=== PATIENT | female | born 1980 | race Caucasian/White ===

== ENCOUNTER 2016-03-17 07:54 | Emergency (ER) | payer BC ==
--- NOTE | 2016-03-17 08:18 | Emergency Department Record ---
History of Present Illness - General Chief complaint: Pain Stated complaint: EAR PAIN AND LEG PAIN Time Seen by Provider: 03/17/16 08:16 Source: Patient Mode of Arrival: Ambulatory Limitations: No limitations - History of Present Illness Initial comments: 35 yo female presents to ED for evaluation of several complaints. Patient reports right ear pain for 1-2 days, denies drainage or decreased hearing symptoms. Patient also reports pain radiating down her right posterior leg described as "burning" as well. Patient denies weakness, urinary retention, or frequency symptoms. Patient also believes that she may have a "rib out" on her right side. Patient denies injury or trauma. Patient denies health problems at her baseline, but does report a history of Hodgekin's lymphoma in remission as well as thyroid dysfunction resulting from her radiation treatments, takes synthroid daily. MD Complaint: Extremity pain Onset/Timin -: Days(s) Location: Right, Lower Leg, Thigh Severity scale (1-10): 7 Quality: Burning Consistency: Constant Improves with: Nothing Worsens with: Nothing Associated Symptoms: Denies other symptoms - Related Data Home Medications Medication Instructions Recorded Confirmed Last Taken Nitrofurantoin Macrocrystal 100 mg PO DAILY PRN 01/01/14 03/17/16 10/01/15 [Nitrofurantoin] Solifenacin Succinate [Vesicare] 5 mg PO DAILY 01/01/14 03/17/16 10/01/15 Levothyroxine Sodium [Synthroid] 100 mcg PO DAILY 09/11/14 03/17/16 10/02/15 Rizatriptan Benzoate [Maxalt] 5 mg PO ASDIR PRN tab 12/28/14 03/17/16 10/01/15 Previous Rx's Medication Instructions Recorded Naproxen [Naprosyn] 500 mg PO Q12H PRN #20 tab. 03/17/16 Allergies Allergy/AdvReac Type Severity Reaction Status Date / Time No Known Drug Allergies Allergy Verified 03/17/16 08:07 Travel Screening - Travel/Exposure Within Last 30 Days Have you traveled within the last 30 days?: No - Travel Symptoms Symptom Screening: None Review of Systems Constitutional: Denies: Chills, Fever, Malaise, Night sweats Eyes: Denies: Eye discharge, Eye pain ENT: Reports: Ear pain. Denies: Congestion, Epistaxis Respiratory: Denies: Cough, Dyspnea Cardiovascular: Denies: Chest pain, Dyspnea on exertion Endocrine: Denies: Fatigue, Heat or cold intolerance Gastrointestinal: Denies: Abdominal pain, Nausea, Vomiting Genitourinary: Denies: Dysuria, Frequency, Hematuria Musculoskeletal: Reports: Myalgia. Denies: Arthralgia, Back pain, Gout, Joint swelling Skin: Denies: Bruising, Change in color Neurological: Denies: Abnormal gait, Confusion, Headache, Numbness, Seizure, Weakness Psychiatric: Denies: Anxiety Hematological/Lymphatic: Denies: Anemia, Blood Clots Past Medical History - SOCIAL HISTORY Smoking Status: Never smoker Alcohol Use: None Drug Use: None - RESPIRATORY Hx Respiratory Disorders: Yes Comment:: Spontaneous pneumothorax - CARDIOVASCULAR Hx Cardio Disorders: Yes Comment:: Murmur - NEURO Hx Neuro Disorders: Yes Hx Headaches: Yes - GI Hx GI Disorders: Yes Hx Irritable Bowel: Yes - Hx Genitourinary Disorders: Yes Comment:: Interstitial Cystitis - ENDOCRINE Hx Endocrine Disorders: Yes Hx Thyroid Disease: Yes (Complete thyroidectomy) - MUSCULOSKELETAL Hx Musculoskeletal Disorders: Yes Comment:: osteopenia - PSYCH Hx Psych Problems: Yes Hx Anxiety: Yes - HEMATOLOGY/ONCOLOGY Hx Hematology/Oncology Disorders: Yes Hx Cancer: Yes (hx Hodgkins Lymphoma stage 4 age 16) Hx Chemotherapy: Yes Hx Radiation Therapy: Yes Family Medical History Any Significant Family History?: Yes Hx Cancer: Father, Grandparents Hx Heart Disease: Grandparents Physical Exam - General General Appearance: Alert, Oriented x3, Cooperative, No acute distress, Other ( patient is on [employer] mobile phone looking at [employer] during her examination) - Head Head exam: Atraumatic, Normocephalic, Normal inspection Head exam detail: negative: Abrasion, Contusion, Toledo's sign, General tenderness, Hematoma, Laceration - Eye Eye exam: Normal appearance. negative: Conjunctival injection, Periorbital swelling, Periorbital tenderness, Scleral icterus - ENT ENT exam: TM's normal bilaterally Ear exam: Other (Cerumen in the ears bilaterally). negative: Auricular hematoma , Auricular trauma, External canal tenderness Nasal Exam: negative: Active bleeding, Discharge, Dried blood, Foreign body Mouth exam: negative: Drooling, Laceration, Muffled voice, Tongue elevation - Neck Neck exam: Normal inspection. negative: Meningismus, Tenderness - Respiratory Respiratory exam: Normal lung sounds bilaterally. negative: Respiratory distress, Rhonchi, Stridor, Wheezes - Cardiovascular Cardiovascular Exam: Regular rate, Normal rhythm, Normal heart sounds - GI/Abdominal GI/Abdominal exam: Soft. negative: Rebound, Rigid, Tenderness - Rectal Rectal exam: Deferred - exam: Deferred - Extremities Extremities exam: Normal inspection, Full ROM, Other (Dorsiflexion and plantar flexion are symmetric, 5/5 bialterally, no lower extremity edema is present, no calf pain on examination.). negative: Calf tenderness, Pedal edema, Tenderness - Back Back exam: Denies: CVA tenderness (R), CVA tenderness (L) - Neurological Neurological exam: Alert, Normal gait, Oriented X3 - Psychiatric Psychiatric exam: Normal affect, Normal mood - Skin Skin exam: Normal color. negative: Abrasion Type of lesion: negative: abrasion Course Vital Signs 03/17/16 07:57 Temperature 97.8 F Pulse Rate 95 H Respiratory 18 Rate Blood Pressure 106/67 Pulse Ox 99 - Reevaluation(s) Reevaluation #1: 03/17/16 08:24 On examination, patient has no risk factors or history of DVT previously, and has no clinical signs/symptoms that are consistent with DVT. Patient reports "burning" down the back of her right thigh, denies LE weakness, numbness, or tingling. Symptoms are c/w sciatica, and the patient denies any form of trauma/ injury. Radiographs are unlikely to be of benefit. Patient's TMs appear clear with moderate cerumen bilaterally, no evidence for infection on examination. Patient c/o right sided "rib pain", has normal BS, mild TTP with palpation of the right posterior ribs on examination. Patient is PERC negative on examination. Will treat with Naprosyn for the patient's pain symptoms with instructions for follow-up in 3-5 days with her PCP. Disposition Disposition: Discharge Clinical Impression: Ear pain, right Sciatica Qualifiers: Laterality: right Qualified Code(s): M54.31 - Sciatica, right side Disposition: Home, Self-Care Condition: (2) Stable Instructions: Sciatica (ED) Additional Instructions: Return to ED if your symptoms worsen or if you have any concerns. Naprosyn as directed. Follow-up with Dr. Ghotra in 3-5 days as directed. Prescriptions: Naproxen [Naprosyn] 500 mg PO Q12H PRN #20 tab. PRN Reason: Pain - Moderate (5-7) Forms: Patient Portal Access Time of Disposition: 08:18
== END 2016-03-17 08:25 | disposition home or self-care (01) ==
LOC: ER 07:54
DX: M54.31 Sciatica, right side (principal); H92.01 Otalgia, right ear; H61.23 Impacted cerumen, bilateral; R07.81 Pleurodynia
CPT/HCPCS: 99282

== ENCOUNTER 2016-05-27 07:39 | Emergency (ER) | payer BC ==
--- NOTE | 2016-05-27 07:57 | Emergency Department Record ---
History of Present Illness - General Chief Complaint: Headache Migraine Stated Complaint: HEADACHE Time Seen by Provider: 05/27/16 07:56 Source: Patient Mode of Arrival: Ambulatory Limitations: No limitations - History of Present Illness Initial Comments: The patient is here due to a 24 hour hx of sharp stabbing L sided CP. The pain is intermittent and lasts seconds to minutes. She denies any EDWARDO, SOB, sweating , nausea, or vomiting with the pain. There is no exertional component with the pain and she denies any ARIAS or a pleuritic or positional aspect to the pain. She denies any recent illnesses, fever, chills, cough or injuries. The patient also has a typical migraine LOPEZ for the last day or so also but that has been a chronic issue. There is no new pain, visual changes or any changes from her typical LOPEZ pattern but she does have very mild bilateral facial numbness. There are no visual changes, arm or leg numbness weakness or balance issues. MD Complaint: Headache Onset/Timin -: Hour(s) Onset Description: Gradual Location: Diffuse, Left Severity: Moderate Severity scale (1-10): 5 Quality: Similar to previous headaches Consistency: Constant Improves With: Nothing Worsens With: None Other Symptoms: Chest pain Treatments Prior to Arrival: None - Related Data Home Medications Medication Instructions Recorded Confirmed Last Taken Nitrofurantoin Macrocrystal 100 mg PO DAILY PRN 01/01/14 05/27/16 05/26/16 [Nitrofurantoin] Solifenacin Succinate [Vesicare] 5 mg PO DAILY 01/01/14 05/27/16 05/26/16 Levothyroxine Sodium [Synthroid] 100 mcg PO DAILY 09/11/14 05/27/16 05/26/16 Rizatriptan Benzoate [Maxalt] 5 mg PO ASDIR PRN tab 12/28/14 05/27/16 10/01/15 Previous Rx's Medication Instructions Recorded Naproxen [Naprosyn] 250 mg PO BID #14 tablet 05/27/16 Allergies Allergy/AdvReac Type Severity Reaction Status Date / Time No Known Drug Allergies Allergy Verified 05/27/16 07:44 Travel Screening - Travel/Exposure Within Last 30 Days Have you traveled within the last 30 days?: No - Travel/Exposure Within Last Year Have you traveled outside the [place] in the last year?: No - Additonal Travel Details Have you been exposed to anyone with a communicable illness?: No - Travel Symptoms Symptom Screening: None Review of Systems Constitutional: Denies: Chills, Fever Eyes: Denies: Eye discharge ENT: Denies: Congestion Respiratory: Denies: Cough, Dyspnea Cardiovascular: Denies: Arrhythmia Past Medical History - SOCIAL HISTORY Smoking Status: Never smoker Alcohol Use: None Drug Use: None - RESPIRATORY Hx Respiratory Disorders: Yes Comment:: Spontaneous pneumothorax - CARDIOVASCULAR Hx Cardio Disorders: Yes Comment:: Murmur - NEURO Hx Neuro Disorders: Yes Hx Headaches: Yes - GI Hx GI Disorders: Yes Hx Irritable Bowel: Yes - Hx Genitourinary Disorders: Yes Comment:: Interstitial Cystitis - ENDOCRINE Hx Endocrine Disorders: Yes Hx Thyroid Disease: Yes (Complete thyroidectomy) - MUSCULOSKELETAL Hx Musculoskeletal Disorders: Yes Comment:: osteopenia - PSYCH Hx Psych Problems: Yes Hx Anxiety: Yes - HEMATOLOGY/ONCOLOGY Hx Hematology/Oncology Disorders: Yes Hx Cancer: Yes (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 negative: Tonsillar erythema, Tonsillar exudate - Neck Neck exam: Normal inspection, Full ROM. negative: Lymphadenopathy, Meningismus (The neck is very supple.), Tenderness - Respiratory Respiratory exam: Normal lung sounds bilaterally, Chest wall tenderness (There is tenderness to the L anterior T5-6 area costochondral joints.). negative: Respiratory distress - Cardiovascular Cardiovascular Exam: Regular rate, Normal rhythm, Normal heart sounds - GI/Abdominal GI/Abdominal exam: Soft, Normal bowel sounds. negative: Tenderness - Extremities Extremities exam: Normal inspection, Full ROM, Normal capillary refill. negative: Tenderness - Neurological Neurological exam: Alert, Normal gait, Oriented X3, Other (neg Drift or Rhomberg.). negative: Abnormal gait, Altered, Motor sensory deficit Course Vital Signs 05/27/16 07:47 Temperature 97.8 F Pulse Rate 92 H Respiratory 18 Rate Blood Pressure 110/86 Pulse Ox 98 - Reevaluation(s) Reevaluation #1: The patient is doing well at this time. She denies any CP, SOB, or EDWARDO at this time. Her LOPEZ and facial numbness has resolved also. I explained to her that her lab tests, xray and EKG are all WNL's. She is to F/U with her PCP next week for further evaluation. I also explained to her that due to her age and description of the pain in her chest I strongly doubt any cardiac or pulmonary etiology. She is low risk by Wells, Criteria and PERC Neg so I also strongly doubt any clotting issues. 05/27/16 09:59 05/27/16 10:02 Medical Decision Making - Data Complexity MDM Data: Labs Ordered and/or Reviewed, X-Ray Ordered and/or Reviewed, EKG Ordered and/or Reviewed - Lab Data Result diagrams: 05/27/16 08:30 05/27/16 08:30 - EKG Data -: EKG Interpreted by Me EKG: No Acute Changes, Normal EKG - Radiology Data Radiology results: Report reviewed (CXR: Neg.) Disposition Disposition: Discharge Clinical Impression: Anterior chest wall pain Disposition: Home, Self-Care Condition: (1) Good Instructions: Migraine Headache (ED), Chest Wall Pain (ED) Additional Instructions: Please rest today and use Naprosyn for pain. Please see your PCP next week for recheck and to discuss possibly ordering a cardiac echo. Please return to the ER for any increased pain, trouble breathing or sweating. Prescriptions: Naproxen [Naprosyn] 250 mg PO BID #14 tablet Forms: Patient Portal Access Time of Disposition: 09:58
[2016-05-27] MEDS: KETOROLAC 30 MG/ML VIAL IVP ONE (08:22)
[2016-05-27 08:35] LABS: BASO % 1.2 % (0-6); EOS % 7.5 % (0-6); GRAN % 39.9 % (47-80); HEMATOCRIT 37.9 % (35.0-47.0); HEMOGLOBIN 12.4 gm/dl (11.6-16.0); LYMPH % 43.3 % (16-45); MEAN CELL VOLUME 91.8 fl (81-97); MEAN CORPUSCULAR HGB CONC 32.7 g/dl (32-36); MEAN PLATELET VOLUME 8.7 fl (7.4-10.4); MONO % 8.1 % (0-9); PLATELET COUNT 200 K/uL (130-400); RED BLOOD COUNT 4.13 M/uL (3.80-5.40); RED CELL DISTRIBUTION WIDTH 12.7 % (11.5-14.5); WHITE BLOOD COUNT W/O DIFF 3.2 K/uL (4.2-12.2)
[2016-05-27 08:51] LABS: ANION GAP 6.4 (7-16); BLOOD UREA NITROGEN 9 mg/dL (7-17); CARBON DIOXIDE 28.6 mmol/L (22-30); CREATINE PHOSPHOKINASE 44 U/L (30-135); CREATININE 0.8 mg/dL (0.52-1.04); EST GLOMERULAR FILTRATION RATE > 60 ml/min; GLUCOSE,RANDOM 93 mg/dL (70-110)
[2016-05-27 09:03] LABS: CKMB < 0.2 ug/L (0-6); TROPONIN I < 0.012 ng/mL (0.00-0.034)
[2016-05-27] MEDS: METOCLOPRAMIDE HCL 10 MG/2 ML VIAL IVP ONE (09:10)
[2016-05-27] MEDS: DIPHENHYDRAMINE HCL IV 50 MG/ML VIAL IVP ONE (09:10)
== END 2016-05-27 10:19 | disposition home or self-care (01) ==
LOC: ER 07:39
DX: R07.89 Other chest pain (principal); R20.0 Anesthesia of skin; R51 Headache; Z85.71 Personal history of Hodgkin lymphoma
CPT/HCPCS: 99284 ×2; 96374; 96375; 82550; 85025; 85651; 82553; 84484; 80048; 71020; 93005; 93010; J1885; J1200; J2765

== ENCOUNTER 2016-06-05 20:09 | Emergency (ER) | payer BC ==
[2016-06-05] MEDS ORDERED: AMOXICILLIN 500 MG TABLET PO ONE (20:49)
[2016-06-05] MEDS ORDERED: IBUPROFEN 600 MG TABLET PO ONE (20:49)
[2016-06-05] MEDS ORDERED: DEXAMETHASONE SOD PHOSPHATE 10MG/ML VIAL PO ONE (20:49)
--- NOTE | 2016-06-05 20:49 | Emergency Department Record ---
History of Present Illness - General Chief complaint: ENT Stated complaint: SINUS AND EAR PAIN Time Seen by Provider: 06/05/16 20:43 Source: Patient Mode of Arrival: Ambulatory Limitations: No limitations - History of Present Illness Initial comments: 36 yo female presents with sinus congestion, sore throat, left sided ear pain that started on Wednesday. No fever. She has congestion and popping in the ear. She has pain with swallowing. The cough is non productive. MD complaint: Ear pain, Sore throat, Other (cough) Onset/Timin -: Hour(s) Location: L ear Severity scale (1-10): 6 Consistency: Constant Improves with: None Worsens with: Movement, Swallowing Associated Symptoms: Cough, Sore throat - Related Data Home Medications Medication Instructions Recorded Confirmed Last Taken Nitrofurantoin Macrocrystal 100 mg PO DAILY PRN 01/01/14 06/05/16 06/05/16 [Nitrofurantoin] Solifenacin Succinate [Vesicare] 5 mg PO DAILY 01/01/14 06/05/16 06/05/16 Levothyroxine Sodium [Synthroid] 100 mcg PO DAILY 09/11/14 06/05/16 06/05/16 Rizatriptan Benzoate [Maxalt] 5 mg PO ASDIR PRN tab 12/28/14 06/05/16 06/05/16 Previous Rx's Medication Instructions Recorded Naproxen [Naprosyn] 250 mg PO BID #14 tablet 05/27/16 Amoxicillin 500 mg PO TID #21 capsule 06/05/16 Allergies Allergy/AdvReac Type Severity Reaction Status Date / Time No Known Drug Allergies Allergy Verified 05/27/16 07:44 Travel Screening - Travel/Exposure Within Last 30 Days Have you traveled within the last 30 days?: No - Travel Symptoms Symptom Screening: None Review of Systems Constitutional: Denies: Chills, Fever, Night sweats, Weakness Eyes: Denies: Eye discharge, Eye pain, Photophobia, Vision change ENT: Reports: Congestion, Ear pain (left), Throat pain Respiratory: Reports: Cough. Denies: Dyspnea, Hemoptysis, Stridor, Wheezes Cardiovascular: Denies: Chest pain, Palpitations, Syncope Endocrine: Denies: Fatigue, Polydipsia, Polyuria Gastrointestinal: Denies: Abdominal pain, Diarrhea, Nausea, Vomiting Genitourinary: Denies: Dysuria, Urgency Musculoskeletal: Denies: Arthralgia, Back pain, Joint swelling, Myalgia, Neck pain, Other Skin: Denies: Bruising, Change in color, Rash Neurological: Denies: Headache Psychiatric: Denies: Anxiety Hematological/Lymphatic: Denies: Blood Clots, Easy bleeding, Easy bruising, Swollen glands Past Medical History - SOCIAL HISTORY Smoking Status: Never smoker - RESPIRATORY Hx Respiratory Disorders: Yes Comment:: Spontaneous pneumothorax - CARDIOVASCULAR Hx Cardio Disorders: Yes Comment:: Murmur - NEURO Hx Neuro Disorders: Yes Hx Headaches: Yes - GI Hx GI Disorders: Yes Hx Irritable Bowel: Yes - Hx Genitourinary Disorders: Yes Comment:: Interstitial Cystitis - ENDOCRINE Hx Endocrine Disorders: Yes Hx Thyroid Disease: Yes (Complete thyroidectomy) - MUSCULOSKELETAL Hx Musculoskeletal Disorders: Yes Comment:: osteopenia - PSYCH Hx Psych Problems: Yes Hx Anxiety: Yes - HEMATOLOGY/ONCOLOGY Hx Hematology/Oncology Disorders: Yes Hx Cancer: Yes (hx Hodgkins Lymphoma stage 4 age 16) Hx Chemotherapy: Yes Hx Radiation Therapy: Yes Family Medical History Any Significant Family History?: Yes Hx Cancer: Father, Grandparents Hx Heart Disease: Father, Grandparents Physical Exam - General General Appearance: Alert, Oriented x3, Cooperative, No acute distress Limitations: No limitations - Head Head exam: Normal inspection. negative: Atraumatic, Normocephalic Head exam detail: negative: Abrasion, Contusion - Eye Eye exam: Normal appearance, PERRL, Periorbital tenderness. negative: Conjunctival injection, Periorbital swelling, Scleral icterus - ENT ENT exam: Mucous membranes moist, Normal external ear exam. negative: Normal exam, Mucous membranes dry, Normal orophraynx, TM's normal bilaterally (left sided cerumen impaction) Ear exam: Normal external inspection Nasal Exam: Normal inspection, Sinus tenderness. negative: Active bleeding, Discharge, Foreign body Mouth exam: Normal external inspection, Tongue normal Teeth exam: Normal inspection. negative: Dental caries Throat exam: Tonsillar erythema. negative: Tonsillomegaly, Tonsillar exudate, R peritonsillar mass, L peritonsillar mass - Neck Neck exam: Normal inspection, Full ROM. negative: Tenderness - Respiratory Respiratory exam: Normal lung sounds bilaterally. negative: Respiratory distress - Cardiovascular Cardiovascular Exam: Regular rate, Normal rhythm, Normal heart sounds - GI/Abdominal GI/Abdominal exam: Soft - Rectal Rectal exam: Deferred - exam: Deferred - Extremities Extremities exam: Normal inspection, Full ROM, Normal capillary refill. negative: Tenderness - Back Back exam: Reports: Normal inspection, Full ROM. Denies: Muscle spasm, Rash noted, Tenderness - Neurological Neurological exam: Alert, Normal gait, Oriented X3, Reflexes normal - Psychiatric Psychiatric exam: Normal affect, Normal mood - Skin Skin exam: Dry, Intact, Normal color, Warm Course Vital Signs 06/05/16 20:24 Temperature 97.6 F Pulse Rate 74 Respiratory 16 Rate Blood Pressure 117/88 Pulse Ox 100 Disposition Disposition: Discharge Clinical Impression: Sinusitis, Impacted cerumen of left ear Disposition: Home, Self-Care Condition: (1) Good Instructions: Cerumen Impaction (ED), Sinusitis (ED) Additional Instructions: Call your doctor for your doctor for a recheck first of the week Return if worse, any new concerns or symptoms Prescriptions: Amoxicillin 500 mg PO TID #21 capsule Forms: Patient Portal Access Time of Disposition: 20:53
== END 2016-06-05 21:10 | disposition home or self-care (01) ==
LOC: ER 20:09
DX: J01.90 Acute sinusitis, unspecified (principal); H61.22 Impacted cerumen, left ear; J02.9 Acute pharyngitis, unspecified
CPT/HCPCS: 99282

== ENCOUNTER 2016-08-28 09:03 | Emergency (ER) | payer BC ==
[2016-08-28] MEDS ORDERED: 0.9 % SODIUM CHLORIDE 1,000 ML BAG IV ONE (09:27)
[2016-08-28 09:44] LABS: BASO % 0.6 % (0-6); EOS % 1.7 % (0-6); GRAN % 55.9 % (47-80); HEMATOCRIT 39.8 % (35.0-47.0); HEMOGLOBIN 13.1 gm/dl (11.6-16.0); LYMPH % 34.9 % (16-45); MEAN CELL VOLUME 91.3 fl (81-97); MEAN CORPUSCULAR HGB CONC 32.9 g/dl (32-36); MEAN PLATELET VOLUME 8.6 fl (7.4-10.4); MONO % 6.9 % (0-9); PLATELET COUNT 224 K/uL (130-400); RED BLOOD COUNT 4.36 M/uL (3.80-5.40); WHITE BLOOD COUNT W/O DIFF 5.2 K/uL (4.2-12.2)
[2016-08-28 09:56] LABS: ALB/GLOB RATIO 1.6 (1.1-1.8); ALBUMIN 4.5 gm/dL (3.5-5.0); ALKALINE PHOSPHATASE 47 U/L (38-126); ALT/SGPT 25 U/L (9-52); ANION GAP 10.1 (7-16); AST/SGOT 17 U/L (14-36); BLOOD UREA NITROGEN 9 mg/dL (7-17); CARBON DIOXIDE 25.9 mmol/L (22-30); CREATININE 0.7 mg/dL (0.52-1.04); EST GLOMERULAR FILTRATION RATE > 60 ml/min; GLUCOSE,RANDOM 97 mg/dL (70-110); LIPASE 112 U/L (23-300); TOTAL PROTEIN 7.4 gm/dL (6.3-8.2)
--- NOTE | 2016-08-28 10:32 | Emergency Department Record ---
History of Present Illness - General Chief Complaint: Abdominal Pain Stated Complaint: RIGHT SIDE PAIN Time Seen by Provider: 08/28/16 09:12 Source: Patient Mode of Arrival: Ambulatory Limitations: No limitations - History of Present Illness Initial Comments: pt c/o r sided abd pain. she has no n/v/c/d. the pain started yesterday. pushing on it makes it sharp. Onset/Timin -: Days(s) Location: RUQ Radiation: RLQ Severity: Moderate Quality: Sharp Consistency: Intermittent Improves With: Nothing Worsens With: Movement - Related Data Patient : No Home Medications Medication Instructions Recorded Confirmed Last Taken Nitrofurantoin Macrocrystal 100 mg PO DAILY PRN 01/01/14 08/28/16 08/24/16 [Nitrofurantoin] Solifenacin Succinate [Vesicare] 5 mg PO DAILY 01/01/14 08/28/16 06/05/16 Levothyroxine Sodium [Synthroid] 100 mcg PO DAILY 09/11/14 08/28/16 08/27/16 Rizatriptan Benzoate [Maxalt] 5 mg PO ASDIR PRN tab 12/28/14 08/28/16 08/21/16 Allergies Allergy/AdvReac Type Severity Reaction Status Date / Time No Known Drug Allergies Allergy Verified 05/27/16 07:44 Travel Screening - Travel/Exposure Within Last 30 Days Have you traveled within the last 30 days?: No - Travel/Exposure Within Last Year Have you traveled outside the [place] in the last year?: No - Additonal Travel Details Have you been exposed to anyone with a communicable illness?: No - Travel Symptoms Symptom Screening: None Review of Systems Reviewed: No additional complaints except as noted below Constitutional: Reports: As per HPI. Denies: Chills, Fever, Malaise, Night sweats, Weakness, Weight change Eyes: Reports: As per HPI. Denies: Eye discharge, Eye pain, Photophobia, Vision change ENT: Reports: As per HPI. Denies: Congestion, Dental pain, Ear pain, Epistaxis , Hearing loss, Throat pain Respiratory: Reports: As per HPI. Denies: Cough, Dyspnea, Hemoptysis, Stridor, Wheezes Cardiovascular: Reports: As per HPI. Denies: Arrhythmia, Chest pain, Dyspnea on exertion, Edema, Murmurs, Orthopnea, Palpitations, Paroxysmal nocturnal dyspnea, Rheumatic Fever, Syncope Endocrine: Reports: As per HPI. Denies: Fatigue, Heat or cold intolerance, Polydipsia, Polyuria Gastrointestinal: Reports: As per HPI. Denies: Abdominal pain, Constipation, Diarrhea, Hematemesis, Hematochezia, Melena, Nausea, Vomiting Genitourinary: Reports: As per HPI. Denies: Abnormal menses, Discharge, Dyspareunia, Dysuria, Frequency, Hematuria, Incontinence, Retention, Urgency Musculoskeletal: Reports: As per HPI. Denies: Arthralgia, Back pain, Gout, Joint swelling, Myalgia, Neck pain Skin: Reports: As per HPI. Denies: Bruising, Change in color, Change in hair/ nails, Lesions, Pruritus, Rash Neurological: Reports: As per HPI. Denies: Abnormal gait, Confusion, Headache, Numbness, Paresthesias, Seizure, Tingling, Tremors, Vertigo, Weakness Psychiatric: Reports: As per HPI. Denies: Anxiety, Auditory hallucinations, Depression, Homicidal thoughts, Suicidal thoughts, Visual hallucinations Hematological/Lymphatic: Reports: As per HPI. Denies: Anemia, Blood Clots, Easy bleeding, Easy bruising, Swollen glands Past Medical History - SOCIAL HISTORY Smoking Status: Never smoker Alcohol Use: None Drug Use: None - RESPIRATORY Hx Respiratory Disorders: Yes Comment:: Spontaneous pneumothorax - CARDIOVASCULAR Hx Cardio Disorders: Yes Comment:: Murmur - NEURO Hx Neuro Disorders: Yes Hx Headaches: Yes - GI Hx GI Disorders: Yes Hx Irritable Bowel: Yes - Hx Genitourinary Disorders: Yes Comment:: Interstitial Cystitis- unknown - ENDOCRINE Hx Endocrine Disorders: Yes Hx Thyroid Disease: Yes (Complete thyroidectomy) - MUSCULOSKELETAL Hx Musculoskeletal Disorders: Yes Comment:: osteopenia - PSYCH Hx Psych Problems: Yes Hx Anxiety: Yes - HEMATOLOGY/ONCOLOGY Hx Hematology/Oncology Disorders: Yes Hx Cancer: Yes (hx Hodgkins Lymphoma stage 4 age 16) Hx Chemotherapy: Yes Hx Radiation Therapy: Yes Family Medical History Any Significant Family History?: No Hx Cancer: Father, Grandparents Hx Heart Disease: Father, Grandparents Physical Exam - General General Appearance: Alert, Oriented x3, Cooperative, Mild distress - Head Head exam: Normal inspection - Eye Eye exam: Normal appearance, PERRL, EOMI Pupils: Normal accommodation - ENT ENT exam: Normal exam, Mucous membranes moist, Normal external ear exam, Normal orophraynx Ear exam: Normal external inspection. negative: External canal tenderness Nasal Exam: Normal inspection. negative: Discharge, Sinus tenderness Mouth exam: Normal external inspection, Tongue normal Teeth exam: Normal inspection. negative: Dental caries Throat exam: Normal inspection. negative: Tonsillar erythema, Tonsillar exudate - Neck Neck exam: Normal inspection, Full ROM. negative: Tenderness - Respiratory Respiratory exam: Normal lung sounds bilaterally. negative: Respiratory distress - Cardiovascular Cardiovascular Exam: Regular rate, Normal rhythm, Normal heart sounds - GI/Abdominal GI/Abdominal exam: Soft, Normal bowel sounds, Tenderness (r side) - Rectal Rectal exam: Deferred - exam: Deferred - Extremities Extremities exam: Normal inspection, Full ROM, Normal capillary refill. negative: Tenderness - Back Back exam: Reports: Normal inspection, Full ROM. Denies: Muscle spasm, Rash noted, Tenderness - Neurological Neurological exam: Alert, CN II-XII intact, Normal gait, Oriented X3, Reflexes normal - Psychiatric Psychiatric exam: Normal affect, Normal mood - Skin Skin exam: Dry, Intact, Normal color, Warm Course Vital Signs 08/28/16 09:04 Temperature 97.9 F Pulse Rate 85 Respiratory 16 Rate Blood Pressure 120/90 Pulse Ox 99 Medical Decision Making - Lab Data Result diagrams: 08/28/16 09:35 08/28/16 09:35 Lab Results 08/28/16 08/28/16 Range/Units 09:35 09:35 WBC 5.2 (4.2-12.2) K/uL RBC 4.36 (3.80-5.40) M/uL Hgb 13.1 (11.6-16.0) gm/dl Hct 39.8 (35.0-47.0) % MCV 91.3 (81-97) fl MCH 30.0 (27-33) pg MCHC 32.9 (32-36) g/dl RDW 13.0 (11.5-14.5) % Plt Count 224 (130-400) K/uL MPV 8.6 (7.4-10.4) fl Gran % 55.9 (47-80) % Lymphocytes % 34.9 (16-45) % Monocytes % 6.9 (0-9) % Eosinophils % 1.7 (0-6) % Basophils % 0.6 (0-6) % Sodium 140 (136-145) mmol/L Potassium 4.2 (3.5-5.1) mmol/L Chloride 104 (98-107) mmol/L Carbon Dioxide 25.9 (22-30) mmol/L Anion Gap 10.1 (7-16) BUN 9 (7-17) mg/dL Creatinine 0.7 (0.52-1.04) mg/dL Estimated GFR > 60 ml/min Random Glucose 97 (70-110) mg/dL Calcium 9.2 (8.5-10.1) mg/dL Total Bilirubin 0.70 (0.2-1.3) mg/dL AST 17 (14-36) U/L ALT 25 (9-52) U/L Alkaline Phosphatase 47 (38-126) U/L Total Protein 7.4 (6.3-8.2) gm/dL Albumin 4.5 (3.5-5.0) gm/dL Globulin 2.9 (1.4-4.8) gm/dL Albumin/Globulin Ratio 1.6 (1.1-1.8) Lipase 112 (23-300) U/L Disposition Disposition: Discharge Clinical Impression: Abdominal pain Qualifiers: Abdominal location: right lower quadrant Qualified Code(s): R10.31 - Right lower quadrant pain Disposition: Home, Self-Care Condition: (1) Good Instructions: Abdominal Pain (ED) Additional Instructions: follow up with family doctor. return sooner if worse. recheck in 24 hours if increased right lower abdominal pain Forms: Patient Portal Access Quality - Quality Measures Quality Measures: N/A - Blood Pressure Screening Blood Pressure Classification: Hypertensive Reading Systolic Measurement: 120 Diastolic Measurement: 90 Screening for High Blood Pressure: < Normal BP, F/U Not Required > [G8783] Normal BP Follow-up Interventions: No follow-up required
[2016-08-28 10:49] LABS: URINE APPEARANCE SL CLOUDY; URINE BILIRUBIN NEGATIVE (NEGATIVE); URINE BLOOD TRACE-I (NEGATIVE); URINE COLOR YELLOW; URINE GLUCOSE (UA) NEGATIVE (NEGATIVE); URINE KETONE NEGATIVE (NEGATIVE); URINE LEUKOCYTE ESTERASE NEGATIVE (NEGATIVE); URINE NITRITE NEGATIVE (NEGATIVE); URINE PROTEIN NEGATIVE (NEGATIVE); URINE UROBILINOGEN 0.2 E.U./dL (0.20 - 1.00)
[2016-08-28 10:58] LABS: URINE BACTERIA NONE SEEN; URINE RBC 0 - 2 (NONE SEEN); URINE WBC NONE SEEN (0-2/hpf)
--- NOTE | 2016-08-29 07:53 | CT SCAN REPORT ---
DATE: 08/28/2016 at 11:38. EXAM: ABDOMEN AND PELVIS CT WITH IV CONTRAST. HISTORY: Acute right upper quadrant abdominal pain. COMPARISON: Abdomen CT dated 10/02/2015. TECHNIQUE: Contiguous axial images from the lung bases to the symphysis pubis were obtained after the uneventful intravenous administration of 95 mL of Omnipaque 300 oral contrast was utilized. FINDINGS: The lung bases are clear. The liver and spleen are normal. A 1.0 cm cyst is in the mid left kidney. Normal right kidney. Adrenals, pancreas, and gallbladder are unremarkable. The visualized loops of small and large bowel are of normal caliber with no bowel wall thickening. Normal appendix. No free intraperitoneal fluid or adenopathy. The uterus is present. There is a cyst in the left ovary measuring 2.3 cm likely due to dominant follicle. The urinary bladder is unremarkable. No pelvic mass. No lytic of blastic lesion. IMPRESSION: 1. NO ACUTE PROCESS OF THE ABDOMEN OR PELVIS IDENTIFIED. 2. NORMAL GALLBLADDER AND APPENDIX. 3. BENIGN BOSNIAK TYPE I LEFT RENAL CYST. 4. NOT MENTIONED IN THE BODY OF THE REPORT IS A SMALL AMOUNT OF PREPELVIC FLUID ; LIKELY PHYSIOLOGIC. JOB NUMBER: [id number] [facility]
== END 2016-08-28 13:05 | disposition home or self-care (01) ==
LOC: ER 09:03
DX: R10.31 Right lower quadrant pain (principal)
CPT/HCPCS: 99284 ×2; 83690; 85025; 80053; 81001; 74177; Q9967; J7030

== ENCOUNTER 2016-12-28 16:59 | Emergency (ER) | payer BC ==
--- NOTE | 2016-12-28 18:18 | Emergency Department Record ---
History of Present Illness - General Chief Complaint: Headache Migraine Stated Complaint: HEADACHE 1XWK, BLURRY VISION Time Seen by Provider: 12/28/16 18:17 Source: Patient Mode of Arrival: Ambulatory Limitations: No limitations - History of Present Illness Initial Comments: pt has had a constant headache for 4 days. she states it is different then previous headaches. it started gradually. she said migraine medicine helps it but it keeps coming back. no n/v MD Complaint: Headache Onset/Timin -: Week(s) Onset Description: Gradual Location: Left, Right, Temporal Quality: Aching, Different than previous headaches Consistency: Intermittent Improves With: Nothing Worsens With: None Associated Symptoms: Nausea, Other Treatments Prior to Arrival: Acetaminophen, Migraine medication Treatment Prior to Arrival Comment:: Mag Salts, Excedrin - Related Data Allergies Allergy/AdvReac Type Severity Reaction Status Date / Time No Known Drug Allergies Allergy Verified 12/28/16 17:18 Travel Screening - Travel/Exposure Within Last 30 Days Have you traveled within the last 30 days?: No Review of Systems Reviewed: No additional complaints except as noted below Constitutional: Reports: As per HPI. Denies: Chills, Fever, Malaise, Night sweats, Weakness, Weight change Eyes: Reports: As per HPI. Denies: Eye discharge, Eye pain, Photophobia, Vision change ENT: Reports: As per HPI. Denies: Congestion, Dental pain, Ear pain, Epistaxis , Hearing loss, Throat pain Respiratory: Reports: As per HPI. Denies: Cough, Dyspnea, Hemoptysis, Stridor, Wheezes Cardiovascular: Reports: As per HPI. Denies: Arrhythmia, Chest pain, Dyspnea on exertion, Edema, Murmurs, Orthopnea, Palpitations, Paroxysmal nocturnal dyspnea, Rheumatic Fever, Syncope Endocrine: Reports: As per HPI. Denies: Fatigue, Heat or cold intolerance, Polydipsia, Polyuria Gastrointestinal: Reports: As per HPI. Denies: Abdominal pain, Constipation, Diarrhea, Hematemesis, Hematochezia, Melena, Nausea, Vomiting Genitourinary: Reports: As per HPI. Denies: Abnormal menses, Discharge, Dyspareunia, Dysuria, Frequency, Hematuria, Incontinence, Retention, Urgency Musculoskeletal: Reports: As per HPI. Denies: Arthralgia, Back pain, Gout, Joint swelling, Myalgia, Neck pain Skin: Reports: As per HPI. Denies: Bruising, Change in color, Change in hair/ nails, Lesions, Pruritus, Rash Neurological: Reports: As per HPI. Denies: Abnormal gait, Confusion, Headache, Numbness, Paresthesias, Seizure, Tingling, Tremors, Vertigo, Weakness Psychiatric: Reports: As per HPI. Denies: Anxiety, Auditory hallucinations, Depression, Homicidal thoughts, Suicidal thoughts, Visual hallucinations Hematological/Lymphatic: Reports: As per HPI. Denies: Anemia, Blood Clots, Easy bleeding, Easy bruising, Swollen glands Past Medical History - SOCIAL HISTORY Smoking Status: Never smoker Alcohol Use: None Drug Use: None - RESPIRATORY Hx Respiratory Disorders: Yes Comment:: Spontaneous pneumothorax - CARDIOVASCULAR Hx Cardio Disorders: Yes Comment:: Murmur - NEURO Hx Neuro Disorders: Yes Hx Headaches: Yes - GI Hx GI Disorders: Yes Hx Irritable Bowel: Yes - Hx Genitourinary Disorders: Yes Comment:: Interstitial Cystitis- unknown - ENDOCRINE Hx Endocrine Disorders: Yes Hx Thyroid Disease: Yes (Complete thyroidectomy) - MUSCULOSKELETAL Hx Musculoskeletal Disorders: Yes Comment:: osteopenia - PSYCH Hx Psych Problems: Yes Hx Anxiety: Yes - HEMATOLOGY/ONCOLOGY Hx Hematology/Oncology Disorders: Yes Hx Cancer: Yes (hx Hodgkins Lymphoma stage 4 age 16) Hx Chemotherapy: Yes Hx Radiation Therapy: Yes Family Medical History Any Significant Family History?: Yes Hx Cancer: Father, Grandparents Hx Heart Disease: Father, Grandparents Physical Exam - General General Appearance: Alert, Oriented x3, Cooperative, Mild distress - Head Head exam: Normal inspection - Eye Eye exam: Normal appearance, PERRL, EOMI Pupils: Normal accommodation - ENT ENT exam: Normal exam, Mucous membranes moist, Normal external ear exam, Normal orophraynx Ear exam: Normal external inspection. negative: External canal tenderness Nasal Exam: Normal inspection. negative: Discharge, Sinus tenderness Mouth exam: Normal external inspection, Tongue normal Teeth exam: Normal inspection. negative: Dental caries Throat exam: Normal inspection. negative: Tonsillar erythema, Tonsillar exudate - Neck Neck exam: Normal inspection, Full ROM. negative: Tenderness - Respiratory Respiratory exam: Normal lung sounds bilaterally. negative: Respiratory distress - Cardiovascular Cardiovascular Exam: Regular rate, Normal rhythm, Normal heart sounds - GI/Abdominal GI/Abdominal exam: Soft, Normal bowel sounds. negative: Tenderness - Rectal Rectal exam: Deferred - exam: Deferred - Extremities Extremities exam: Normal inspection, Full ROM, Normal capillary refill. negative: Tenderness - Back Back exam: Reports: Normal inspection, Full ROM. Denies: Muscle spasm, Rash noted, Tenderness - Neurological Neurological exam: Alert, CN II-XII intact, Normal gait, Oriented X3 - Psychiatric Psychiatric exam: Normal affect, Normal mood - Skin Skin exam: Dry, Intact, Normal color, Warm Course Vital Signs 12/28/16 17:12 Temperature 98.2 F Pulse Rate 77 Respiratory 18 Rate Blood Pressure 126/86 Pulse Ox 100 Medical Decision Making - Lab Data Result diagrams: 12/28/16 18:30 12/28/16 18:30 Disposition Disposition: Discharge Clinical Impression: Headache Qualifiers: Headache type: unspecified Headache chronicity pattern: acute headache Intractability: not intractable Qualified Code(s): R51 - Headache Disposition: Home, Self-Care Condition: (1) Good Instructions: Acute Headache (ED) Additional Instructions: follow up with family doctor. return sooner if worse Forms: Patient Portal Access Quality - Quality Measures Quality Measures: N/A - Blood Pressure Screening Does Patient Have Any of the Following: No Blood Pressure Classification: Pre-Hypertensive BP Reading Systolic Measurement: 126 Diastolic Measurement: 86 Screening for High Blood Pressure: < Pre-Hypertensive BP, F/U Documented > [ G8950] Pre-Hypertensive Follow-up Interventions: Follow-up with rescreen every year.
[2016-12-28] MEDS ORDERED: KETOROLAC 30 MG/ML VIAL IVP ONE (18:26)
[2016-12-28 18:41] LABS: BASO % 0.8 % (0-6); EOS % 1.8 % (0-6); GRAN % 44.1 % (47-80); HEMATOCRIT 39.2 % (35.0-47.0); HEMOGLOBIN 12.6 gm/dl (11.6-16.0); LYMPH % 45.5 % (16-45); MEAN CELL VOLUME 91.4 fl (81-97); MEAN CORPUSCULAR HEMOGLOBIN 29.4 pg (27-33); MEAN CORPUSCULAR HGB CONC 32.1 g/dl (32-36); MONO % 7.8 % (0-9); PLATELET COUNT 273 K/uL (130-400); RED BLOOD COUNT 4.29 M/uL (3.80-5.40); RED CELL DISTRIBUTION WIDTH 12.3 % (11.5-14.5)
[2016-12-28 19:10] LABS: BLOOD UREA NITROGEN 9 mg/dL (6-20); CREATININE 0.6 mg/dL (0.5-0.9); EST GLOMERULAR FILTRATION RATE > 60 mL/min; GLUCOSE,RANDOM 102 mg/dL (74-109); THYROID STIMULATING HORMONE 1.88 uIU/mL (0.270-4.20)
--- NOTE | 2016-12-29 11:03 | CT SCAN REPORT ---
EXAM: CT OF THE HEAD WITHOUT CONTRAST HISTORY: PERSISTENT HEADACHE FOR ONE WEEK WITH BLURRED VISION INTERMITTENTLY. TECHNIQUE: Routine noncontrast CT examination of the head was obtained. Comparison: CT of the head without contrast dated 09/11/14. FINDINGS: The ventricles and subarachnoid spaces are stable in size without gross dilatation. No new area of abnormally increased or decreased attenuation is noted throughout the brain substance. No abnormal extraaxial fluid collection is seen. There is minor mucosal thickening suggested in the right maxillary sinus. The visualized paranasal sinuses and mastoid air cells are otherwise clear. There is again suggestion of coarse calcification involving the left eyelid. IMPRESSION: 1. NO CT EVIDENCE OF AN ACUTE INTRACRANIAL ABNORMALITY WITHOUT SIGNIFICANT CHANGE IN APPEARANCE OF THE BRAIN SINCE 09/11/14. 2. RELATIVELY COARSE CALCIFICATION OF THE LEFT EYELID, STABLE. JOB NUMBER: [id number] [facility]
== END 2016-12-28 19:45 | disposition home or self-care (01) ==
LOC: ER 16:59
DX: R51 Headache (principal); R11.0 Nausea; H53.8 Other visual disturbances
CPT/HCPCS: 70450; 80048; 84443; 85025; 96374; 99284; J1885

== ENCOUNTER 2017-11-15 22:10 | Emergency (ER) | payer BC ==
[2017-11-15] MEDS ORDERED: ACETAMINOPHEN 1,000 MG/100 ML BTL IVPB ONE (22:40)
--- NOTE | 2017-11-15 22:44 | Emergency Department Record ---
History of Present Illness - General Chief Complaint: Abdominal Pain Stated Complaint: ABDOMINAL LPAIN Time Seen by Provider: 11/15/17 22:11 Source: Patient Mode of Arrival: Ambulatory Limitations: No limitations - History of Present Illness Initial Comments: 37 yo female presents to ED for progressively worsening RUQ pain symptoms that began approximately 1 week ago. Patient reports worsening pain symptoms after eating, denies fevers, chills, nausea, vomiting, or urinary symptoms. Patient reports previous hysterectomy as well as exploratory laparotomy. Patient denies health problems at her baseline. MD Complaint: Abdominal pain Onset/Timin -: Week(s) Location: RUQ Radiation: None Migration to: No migration Severity: Moderate Severity scale (1-10): 3 Quality: Cramping Consistency: Intermittent Improves With: Nothing Worsens With: Eating Associated Symptoms: Denies other symptoms - Related Data Patient : No Allergies Allergy/AdvReac Type Severity Reaction Status Date / Time No Known Drug Allergies Allergy Unverified 02/01/17 16:16 Travel Screening - Travel/Exposure Within Last 30 Days Have you traveled within the last 30 days?: No - Travel/Exposure Within Last Year Have you traveled outside the [place] in the last year?: No - Additonal Travel Details Have you been exposed to anyone with a communicable illness?: No - Travel Symptoms Symptom Screening: None Review of Systems Constitutional: Denies: Chills, Fever, Malaise, Night sweats Eyes: Denies: Eye discharge, Eye pain ENT: Denies: Congestion, Ear pain, Epistaxis Respiratory: Denies: Cough, Dyspnea Cardiovascular: Denies: Chest pain, Dyspnea on exertion Endocrine: Denies: Fatigue, Heat or cold intolerance Gastrointestinal: Reports: Abdominal pain. Denies: Nausea, Vomiting Genitourinary: Denies: Incontinence, Retention Musculoskeletal: Denies: Arthralgia, Back pain, Gout, Joint swelling Skin: Denies: Bruising, Change in color Neurological: Denies: Abnormal gait, Confusion, Headache, Seizure Psychiatric: Denies: Anxiety Hematological/Lymphatic: Denies: Anemia, Blood Clots Past Medical History - SOCIAL HISTORY Smoking Status: Never smoker Alcohol Use: None Drug Use: None - RESPIRATORY Hx Respiratory Disorders: Yes Comment:: Spontaneous pneumothorax - CARDIOVASCULAR Hx Cardio Disorders: Yes Comment:: Murmur - NEURO Hx Neuro Disorders: Yes Hx Headaches: Yes - GI Hx GI Disorders: Yes Hx Irritable Bowel: Yes - Hx Genitourinary Disorders: Yes Comment:: Interstitial Cystitis- unknown - ENDOCRINE Hx Endocrine Disorders: Yes Hx Thyroid Disease: Yes (Complete thyroidectomy) - MUSCULOSKELETAL Hx Musculoskeletal Disorders: Yes Comment:: osteopenia - PSYCH Hx Psych Problems: Yes Hx Anxiety: Yes - HEMATOLOGY/ONCOLOGY Hx Hematology/Oncology Disorders: Yes Hx Cancer: Yes (hx Hodgkins Lymphoma stage 4 age 16) Hx Chemotherapy: Yes Hx Radiation Therapy: Yes Family Medical History Any Significant Family History?: No Hx Cancer: Father, Grandparents Hx Heart Disease: Father, Grandparents Physical Exam - General General Appearance: Alert, Oriented x3, Cooperative, Mild distress Limitations: No limitations - Head Head exam: Atraumatic, Normocephalic, Normal inspection Head exam detail: negative: Abrasion, Contusion, [place]'s sign, General tenderness, Hematoma, Laceration - Eye Eye exam: Normal appearance. negative: Conjunctival injection, Periorbital swelling, Periorbital tenderness, Scleral icterus - ENT Ear exam: negative: Auricular hematoma, Auricular trauma Nasal Exam: negative: Active bleeding, Discharge, Dried blood, Foreign body Mouth exam: negative: Drooling, Laceration, Muffled voice, Tongue elevation - Neck Neck exam: Normal inspection. negative: Meningismus, Tenderness - Respiratory Respiratory exam: Normal lung sounds bilaterally. negative: Rales, Respiratory distress, Rhonchi, Stridor - Cardiovascular Cardiovascular Exam: Regular rate, Normal rhythm, Normal heart sounds - GI/Abdominal GI/Abdominal exam: Soft, Tenderness, Other (Mild TTP RUQ on examination, no rebound, guarding, or peritoneal signs on examination.). negative: Rebound, Rigid - Rectal Rectal exam: Deferred - exam: Deferred - Extremities Extremities exam: Normal inspection. negative: Calf tenderness, Pedal edema, Tenderness - Back Back exam: Denies: CVA tenderness (R), CVA tenderness (L) - Neurological Neurological exam: Alert, Normal gait, Oriented X3 - Psychiatric Psychiatric exam: Normal affect, Normal mood - Skin Skin exam: Normal color. negative: Abrasion Type of lesion: negative: abrasion Course Vital Signs 11/15/17 22:20 Temperature 98 F Pulse Rate [ 78 Pulse Ox Probe] Respiratory 20 Rate Blood Pressure 131/92 [Left Arm] Pulse Ox 100 - Reevaluation(s) Reevaluation #1: 11/15/17 23:29 Laboratory studies were reviewed and are grossly unremarkable for an acute process. UA pending. Reevaluation #2: 11/16/17 00:45 CT Abdomen and Pelvis: Mild hepatomegaly Gallbladder appears compressed limiting evaluation. Minimal central intrahepatic biliary ductal dilation. Normal appendix. Long segment mucosal thickening of the descending and sig,oid colon, correlate for colitis. Patient was updated on all results, reports that she is filling much better. Patient denies any left sided abdominal pain/flank pain symptoms, colitis appears unlikely. I did discuss these findings with the patient, and she is in agreement to defer antibiotics at this time. Patient was encouraged to follow-up with Dr. Ghotra for outpatient US of the gallbladder, and to return to ED if her symptoms worsen. Patient was instructed to refrain from fatty foods as well. Patient appears stable for discharge at this time. Medical Decision Making - Lab Data Result diagrams: 11/15/17 22:56 11/15/17 22:56 Disposition Disposition: Discharge Clinical Impression: RUQ abdominal pain Disposition: Home, Self-Care Condition: (2) Stable Instructions: Abdominal Pain (ED) Additional Instructions: Return to ED if your symptoms worsen or if you have any concerns.. Follow-up with Dr. Ghotra in 3-5 days as directed. Recommend outpatient ultrasound of the gallbladder for further evaluation of your RUQ pain symptoms. Forms: Patient Portal Access Time of Disposition: 00:54 Quality - Quality Measures Quality Measures: N/A - Blood Pressure Screening Does Patient Have Any of the Following: No Blood Pressure Classification: Pre-Hypertensive BP Reading Systolic Measurement: 121 Diastolic Measurement: 85 Screening for High Blood Pressure: < Pre-Hypertensive BP, F/U Documented > [ G8950] Pre-Hypertensive Follow-up Interventions: Referral to alternative/primary care provider.
[2017-11-15] MEDS ORDERED: 0.9 % SODIUM CHLORIDE 1000ML 1,000 ML IV SCH (22:45)
[2017-11-15 23:10] LABS: BASO % 0.5 % (0-6); GRAN % 56.2 % (47-80); HEMATOCRIT 37.9 % (35.0-47.0); HEMOGLOBIN 12.3 gm/dl (11.6-16.0); LYMPH % 32.3 % (16-45); MEAN CELL VOLUME 91.5 fl (81-97); MEAN CORPUSCULAR HEMOGLOBIN 29.7 pg (27-33); MEAN CORPUSCULAR HGB CONC 32.5 g/dl (32-36); MEAN PLATELET VOLUME 8.5 fl (7.4-10.4); PLATELET COUNT 336 K/uL (130-400); RED BLOOD COUNT 4.14 M/uL (3.80-5.40); RED CELL DISTRIBUTION WIDTH 12.1 % (11.5-14.5); WHITE BLOOD COUNT W/O DIFF 6.7 K/uL (4.2-12.2)
[2017-11-15 23:17] LABS: BLOOD UREA NITROGEN 11 mg/dL (6-20)
[2017-11-15 23:18] LABS: CREATININE 0.8 mg/dL (0.5-0.9); EST GLOMERULAR FILTRATION RATE > 60 mL/min
[2017-11-15 23:20] LABS: GLUCOSE,RANDOM 96 mg/dL (74-109)
[2017-11-15 23:23] LABS: ALB/GLOB RATIO 1.7 (1.1-1.8); ALBUMIN 4.4 g/dL (4.0-5.0); ALKALINE PHOSPHATASE 56 U/L (35-104); ALT/SGPT 6 U/L (<33); AST/SGOT 13 U/L (10.0-35.0); LIPASE 38 U/L (13-60)
[2017-11-15] MEDS: ONDANSETRON HCL IV 4 MG/2 ML VIAL IVP ONE ×2 (23:28→23:32)
== END 2017-11-16 00:59 | disposition home or self-care (01) ==
LOC: ER 22:10
DX: R10.11 Right upper quadrant pain (principal)
CPT/HCPCS: 99284 ×2; 96374; 96375; 83690; 85025; 80053; 74177; Q9967; J2405; J7030

== ENCOUNTER 2018-03-06 20:32 | Emergency (ER) | payer BC ==
[2018-03-06] MEDS ORDERED: ACETAMINOPHEN 500 MG TABLET PO ONE (20:59)
[2018-03-06] MEDS ORDERED: 0.9 % SODIUM CHLORIDE 1,000 ML BAG IV ONE (20:59)
[2018-03-06 21:00] LABS: INFLUENZA A NEGATIVE (NEGATIVE); INFLUENZA B NEGATIVE (NEGATIVE)
--- NOTE | 2018-03-06 21:04 | Emergency Department Record ---
History of Present Illness - General Chief complaint: Flu Like Symptoms Stated complaint: FLU LIKE SYMPTOMS Time Seen by Provider: 03/06/18 20:45 Source: Patient Mode of Arrival: Ambulatory Limitations: No limitations - History of Present Illness Initial comments: pt started running a fever and having body aches 4 days ago and now has become increasingly sob and weak. she has a cough and slight clear congestion. no sore throat MD Complaint: Generalized weakness Onset/Timin -: Days(s) Location: Generalized Severity: Mild Severity scale (1-10): 3 Quality: Aching Consistency: Constant Improves with: None Worsens with: None Associated Symptoms: Shortness of breath - Angelo Coma Scale Eye Response: (4) Open spontaneously Motor Response: (6) Obeys commands Verbal Response: (5) Oriented Mclean Total: 15 - Symptoms of Stroke Symptoms of stroke: Muscle Weakness Baseline State: Baseline State - Related Data Home Medications Medication Instructions Recorded Confirmed Last Taken Sulfamethoxazole/Trimethoprim 1 tab PO BID 03/06/18 03/06/18 03/06/18 [Bactrim Ds Tablet] Allergies Allergy/AdvReac Type Severity Reaction Status Date / Time No Known Drug Allergies Allergy Verified 03/06/18 20:46 Travel Screening - Travel/Exposure Within Last 30 Days Have you traveled within the last 30 days?: No - Travel/Exposure Within Last Year Have you traveled outside the [place] in the last year?: No - Additonal Travel Details Have you been exposed to anyone with a communicable illness?: No - Travel Symptoms Symptom Screening: None Review of Systems Reviewed: No additional complaints except as noted below Constitutional: Reports: As per HPI. Denies: Chills, Fever, Malaise, Night sweats, Weakness, Weight change Eyes: Reports: As per HPI. Denies: Eye discharge, Eye pain, Photophobia, Vision change ENT: Reports: As per HPI. Denies: Congestion, Dental pain, Ear pain, Epistaxis , Hearing loss, Throat pain Respiratory: Reports: As per HPI. Denies: Cough, Dyspnea, Hemoptysis, Stridor, Wheezes Cardiovascular: Reports: As per HPI. Denies: Arrhythmia, Chest pain, Dyspnea on exertion, Edema, Murmurs, Orthopnea, Palpitations, Paroxysmal nocturnal dyspnea, Rheumatic Fever, Syncope Endocrine: Reports: As per HPI. Denies: Fatigue, Heat or cold intolerance, Polydipsia, Polyuria Gastrointestinal: Reports: As per HPI. Denies: Abdominal pain, Constipation, Diarrhea, Hematemesis, Hematochezia, Melena, Nausea, Vomiting Genitourinary: Reports: As per HPI. Denies: Abnormal menses, Discharge, Dyspareunia, Dysuria, Frequency, Hematuria, Incontinence, Retention, Urgency Musculoskeletal: Reports: As per HPI. Denies: Arthralgia, Back pain, Gout, Joint swelling, Myalgia, Neck pain Skin: Reports: As per HPI. Denies: Bruising, Change in color, Change in hair/ nails, Lesions, Pruritus, Rash Neurological: Reports: As per HPI. Denies: Abnormal gait, Confusion, Headache, Numbness, Paresthesias, Seizure, Tingling, Tremors, Vertigo, Weakness Psychiatric: Reports: As per HPI. Denies: Anxiety, Auditory hallucinations, Depression, Homicidal thoughts, Suicidal thoughts, Visual hallucinations Hematological/Lymphatic: Reports: As per HPI. Denies: Anemia, Blood Clots, Easy bleeding, Easy bruising, Swollen glands Past Medical History - SOCIAL HISTORY Smoking Status: Never smoker Alcohol Use: None Drug Use: None - RESPIRATORY Hx Respiratory Disorders: Yes Comment:: Spontaneous pneumothorax - CARDIOVASCULAR Hx Cardio Disorders: Yes Comment:: Murmur - NEURO Hx Neuro Disorders: Yes Hx Headaches: Yes - GI Hx GI Disorders: Yes Hx Irritable Bowel: Yes - Hx Genitourinary Disorders: Yes Comment:: Interstitial Cystitis- unknown - ENDOCRINE Hx Endocrine Disorders: Yes Hx Thyroid Disease: Yes (Complete thyroidectomy) - MUSCULOSKELETAL Hx Musculoskeletal Disorders: Yes Comment:: osteopenia - PSYCH Hx Psych Problems: Yes Hx Anxiety: Yes - HEMATOLOGY/ONCOLOGY Hx Hematology/Oncology Disorders: Yes Hx Cancer: Yes (hx Hodgkins Lymphoma stage 4 age 16) Hx Chemotherapy: Yes (1998) Hx Radiation Therapy: Yes Family Medical History Any Significant Family History?: No Hx Cancer: Father, Grandparents Hx Heart Disease: Father, Grandparents Physical Exam - General General Appearance: Alert, Oriented x3, Cooperative, Mild distress - Head Head exam: Normal inspection - Eye Eye exam: Normal appearance, PERRL, EOMI Pupils: Normal accommodation - ENT ENT exam: Normal exam, Mucous membranes moist, Normal external ear exam, Normal orophraynx Ear exam: Normal external inspection. negative: External canal tenderness Nasal Exam: Normal inspection. negative: Discharge, Sinus tenderness Mouth exam: Normal external inspection, Tongue normal Teeth exam: Normal inspection. negative: Dental caries Throat exam: Normal inspection. negative: Tonsillar erythema, Tonsillar exudate - Neck Neck exam: Normal inspection, Full ROM. negative: Tenderness - Respiratory Respiratory exam: Normal lung sounds bilaterally. negative: Respiratory distress - Cardiovascular Cardiovascular Exam: Regular rate, Normal rhythm, Normal heart sounds - GI/Abdominal GI/Abdominal exam: Soft, Normal bowel sounds. negative: Tenderness - Rectal Rectal exam: Deferred - exam: Deferred - Extremities Extremities exam: Normal inspection, Full ROM, Normal capillary refill. negative: Tenderness - Back Back exam: Reports: Normal inspection, Full ROM. Denies: Muscle spasm, Rash noted, Tenderness - Neurological Neurological exam: Alert, CN II-XII intact, Normal gait, Oriented X3 - Psychiatric Psychiatric exam: Normal affect, Normal mood - Skin Skin exam: Dry, Intact, Normal color, Warm Course Vital Signs 03/06/18 20:37 Temperature 97.6 F Pulse Rate [ 86 Pulse Ox Probe] Respiratory 20 Rate Blood Pressure 130/89 [Left Arm] Pulse Ox 99 Medical Decision Making - Lab Data Result diagrams: 03/06/18 21:10 03/06/18 21:10 Lab Results 03/06/18 Range/Units 20:59 Influenza Type A Ag Negative (NEGATIVE) Influenza Type B Ag Negative (NEGATIVE) Disposition Disposition: Discharge Clinical Impression: Viral syndrome Disposition: Home, Self-Care Condition: (1) Good Instructions: Viral Syndrome (ED) Additional Instructions: follow up with family doctor. return sooner if worse. push fluids Forms: Patient Portal Access Quality - Quality Measures Quality Measures: N/A - Blood Pressure Screening Does Patient Have Any of the Following: No Blood Pressure Classification: Pre-Hypertensive BP Reading Systolic Measurement: 123 Diastolic Measurement: 81 Screening for High Blood Pressure: < Pre-Hypertensive BP, F/U Documented > [ G8950] Pre-Hypertensive Follow-up Interventions: Follow-up with rescreen every year.
[2018-03-06 21:15] LABS: HEMATOCRIT 39.3 % (35.0-47.0); HEMOGLOBIN 13.2 gm/dl (11.6-16.0); MEAN CELL VOLUME 87.5 fl (81-97); MEAN CORPUSCULAR HEMOGLOBIN 29.4 pg (27-33); MEAN CORPUSCULAR HGB CONC 33.6 g/dl (32-36); MEAN PLATELET VOLUME 8.9 fl (7.4-10.4); PLATELET COUNT 223 K/uL (130-400); RED BLOOD COUNT 4.49 M/uL (3.80-5.40); RED CELL DISTRIBUTION WIDTH 12.2 % (11.5-14.5)
[2018-03-06 21:26] LABS: BLOOD UREA NITROGEN 10 mg/dL (6-20); CREATININE 0.8 mg/dL (0.5-0.9); EST GLOMERULAR FILTRATION RATE > 60 mL/min; TOTAL PROTEIN 7.1 g/dL (6.6-8.7)
[2018-03-06 21:28] LABS: GLUCOSE,RANDOM 96 mg/dL (74-109)
[2018-03-06 21:31] LABS: ALB/GLOB RATIO 1.4 (1.1-1.8); ALBUMIN 4.1 g/dL (4.0-5.0); ALKALINE PHOSPHATASE 65 U/L (45-87); ALT/SGPT 9 U/L (<33); AST/SGOT 15 U/L (10.0-35.0)
[2018-03-06 21:51] LABS: ERYTHROCYTE SEDIMENTATION RATE 4 mm/hr (0-20)
--- NOTE | 2018-03-07 14:35 | RADIOLOGY REPORT ---
EXAM: CHEST HISTORY: FLU LIKE SYMPTOMS, COUGH, DIFFICULTY BREATHING, GENERALIZED WEAKNESS. HISTORY OF NON-HODGKIN'S LYMPHOMA. HISTORY OF PNEUMOTHORAX. TECHNIQUE: Two views of the chest were obtained. Comparison: 05/27/16. FINDINGS: The heart is not enlarged and there is no mediastinal mass. There is no acute infiltrate or vascular congestion. Linear areas of scarring are seen in the right upper lung. IMPRESSION: NO ACUTE CARDIAC OR PULMONARY ABNORMALITY. JOB NUMBER: [id number] MTDD
== END 2018-03-06 23:17 | disposition home or self-care (01) ==
LOC: ER 20:32
DX: B34.9 Viral infection, unspecified (principal); R53.1 Weakness; R06.02 Shortness of breath; R05 Cough; Z85.71 Personal history of Hodgkin lymphoma
CPT/HCPCS: 71046; 80053; 83880; 84484; 85027; 85379; 85651; 87400; 93005; 93010; 99284; J7030

== ENCOUNTER 2018-03-08 16:59 | Emergency (ER) | payer BC ==
--- NOTE | 2018-03-08 17:41 | Emergency Department Record ---
History of Present Illness - General Stated complaint: LEG PAIN Time Seen by Provider: 03/08/18 17:36 Source: Patient Mode of Arrival: Ambulatory Limitations: No limitations - History of Present Illness Initial comments: 37 yo female presents with right leg pain for about 2-3 days. She has an achy feeling in the leg. She denies any trauma. No redness or warmth. She is tender in the back of the leg, behind the knee, and calf. No swelling or asymmetry from the other leg. No weakness. She is in remission from NHL. Last week she had about 5 days of cough, chills, aches, myalgias head to toe, fevers. Those symptoms have resolved. MD Complaint: Extremity pain, Extremity swelling -: Days(s) (2-3 days) Location: Right History of Same: No -: Yes Myalgia Radiation: Proximal, Distal Quality: Aching Consistency: Constant Improves with: Elevation, Immobilization Worsens with: Palpation, Walking, Weight bearing Associated Symptoms: Other - Related Data Allergies Allergy/AdvReac Type Severity Reaction Status Date / Time No Known Drug Allergies Allergy Verified 03/08/18 18:21 Review of Systems Constitutional: Reports: Chills, Fever (last week 5 days of aches, chills, cough , fever) Eyes: Reports: Eye discharge ENT: Reports: Congestion Respiratory: Reports: Cough, Dyspnea (last weak 5 days of cough, chills, aches, fever) Cardiovascular: Denies: Chest pain Endocrine: Denies: Fatigue Gastrointestinal: Denies: Abdominal pain, Diarrhea, Nausea, Vomiting Genitourinary: Denies: Dysuria, Urgency Musculoskeletal: Reports: Myalgia (body aches head to toe last week about 5 days with fevers and chills). Denies: Arthralgia Skin: Denies: Bruising, Change in color, Lesions Neurological: Reports: Headache (migraines) Psychiatric: Denies: Anxiety Hematological/Lymphatic: Denies: Blood Clots, Easy bleeding, Easy bruising Past Medical History - SOCIAL HISTORY Smoking Status: Never smoker Drug Use: None - RESPIRATORY Hx Respiratory Disorders: Yes Comment:: Spontaneous pneumothorax - CARDIOVASCULAR Hx Cardio Disorders: Yes Comment:: Murmur - NEURO Hx Neuro Disorders: Yes Hx Headaches: Yes - GI Hx GI Disorders: Yes Hx Irritable Bowel: Yes - Hx Genitourinary Disorders: Yes Comment:: Interstitial Cystitis- unknown - ENDOCRINE Hx Endocrine Disorders: Yes Hx Thyroid Disease: Yes (Complete thyroidectomy) - MUSCULOSKELETAL Hx Musculoskeletal Disorders: Yes Comment:: osteopenia - PSYCH Hx Psych Problems: Yes Hx Anxiety: Yes - HEMATOLOGY/ONCOLOGY Hx Hematology/Oncology Disorders: Yes Hx Cancer: Yes (hx Hodgkins Lymphoma stage 4 age 16) Hx Chemotherapy: Yes (1998) Hx Radiation Therapy: Yes Family Medical History Hx Cancer: Father, Grandparents Hx Heart Disease: Father, Grandparents Physical Exam - General General Appearance: Alert, Oriented x3, Cooperative, No acute distress Limitations: No limitations - Head Head exam: Atraumatic, Normal inspection - Eye Eye exam: Normal appearance, PERRL. negative: Conjunctival injection, Scleral icterus - ENT ENT exam: Normal exam, Mucous membranes moist, Normal external ear exam, Normal orophraynx, TM's normal bilaterally Ear exam: Normal external inspection. negative: External canal tenderness Nasal Exam: Normal inspection. negative: Discharge, Sinus tenderness Mouth exam: Normal external inspection Teeth exam: Normal inspection Throat exam: Normal inspection - Neck Neck exam: Normal inspection - Respiratory Respiratory exam: Normal lung sounds bilaterally. negative: Respiratory distress - Cardiovascular Cardiovascular Exam: Regular rate, Normal rhythm, Normal heart sounds Peripheral Pulses: 2+: Radial (R), Radial (L), Dorsalis Pedis (R) - GI/Abdominal GI/Abdominal exam: Soft. negative: Tenderness - Rectal Rectal exam: Deferred - exam: Deferred - Extremities Extremities exam: Normal inspection, Normal capillary refill, Tenderness. negative: Pedal edema Image of Full Body: 1 - normal inspection, soft, no abnormal warmth or redness, tender behind the knee and calf - Back Back exam: Reports: Normal inspection - Neurological Neurological exam: Alert, Oriented X3 - Psychiatric Psychiatric exam: Normal affect, Normal mood. negative: Agitated, Anxious - Skin Skin exam: Dry, Intact, Normal color, Warm Course - Reevaluation(s) Reevaluation #1: The preliminary read on the venous doppler was negative 03/08/18 18:21 03/08/18 18:51 We discussed home care, close follow up, rest, elevation, NSAIDS Disposition Disposition: Discharge Clinical Impression: Leg pain, right Disposition: Home, Self-Care Condition: (1) Good Instructions: Leg Pain (ED) Additional Instructions: See your doctor or return to be seen if not steadily improving the next 2-3 days Tomorrow rest avoid prolonged standing or activity Forms: Patient Portal Access Time of Disposition: 18:52 Quality - Quality Measures Quality Measures: N/A - Blood Pressure Screening Does Patient Have Any of the Following: No Blood Pressure Classification: Pre-Hypertensive BP Reading Systolic Measurement: 121 Diastolic Measurement: 83 Screening for High Blood Pressure: < Pre-Hypertensive BP, F/U Documented > [ G8950] Pre-Hypertensive Follow-up Interventions: Referral to alternative/primary care provider.
--- NOTE | 2018-03-09 20:49 | US VENOUS DOPPLER REPORT ---
EXAM: ULTRASOUND VENOUS DOPPLER LOWER EXT RT HISTORY: PAIN BEHIND THE RIGHT KNEE RADIATING TO THE CALF. ALSO RADIATING UP THE THIGH. HISTORY OF HODGKIN'S LYMPHOMA. RECENT ILLNESS. TECHNIQUE: Duplex Doppler evaluation of the right lower extremity deep venous system was performed in the standard fashion. FINDINGS: There is normal flow, phasicity, augmentation, and compression from the external iliac vein through the calf veins of the right lower extremity. Comparison images of the left common femoral vein are also normal. There is no cyst within the right popliteal fossa. IMPRESSION: 1. NO EVIDENCE FOR DVT WITHIN THE RIGHT LOWER EXTREMITY. 2. THERE IS NO FAJARDO'S CYST. JOB NUMBER: [id number] MTDD
== END 2018-03-08 19:03 | disposition home or self-care (01) ==
LOC: ER 16:59
DX: M79.604 Pain in right leg (principal); Z85.72 Personal history of non-Hodgkin lymphomas
CPT/HCPCS: 99283

== ENCOUNTER 2018-05-22 19:08 | Emergency (ER) | payer BC ==
--- NOTE | 2018-05-22 19:27 | Emergency Department Record ---
History of Present Illness - General Chief complaint: Pain Stated complaint: HEMMERRHOIDS? Time Seen by Provider: 05/22/18 19:26 Source: Patient Mode of Arrival: Ambulatory Limitations: No limitations - History of Present Illness Initial comments: 38 yo female presents to ED for evaluation of rectal pain x 1 day, reports that she may have a hemorrhoid. Patient denies rectal bleeding, reports pain with bowel movement, pain with standing. Patient denies nausea, vomiting, or abdominal pain symptoms. Patient denies health problems at her baseline. MD Complaint: Other (rectal pain) Onset/Timin -: Days(s) Location: Other History of Same: No Severity scale (1-10): 7 Quality: Aching Consistency: Constant Improves with: Rest Worsens with: Palpation, Walking Associated Symptoms: Denies other symptoms - Related Data Previous Rx's Medication Instructions Recorded Hydrocortisone [Anusol-Hc] 1 apply RC QID #1 tube 05/22/18 Polyethylene Glycol 3350 [Miralax] 1 packet PO DAILY #15 packet 05/22/18 Allergies Allergy/AdvReac Type Severity Reaction Status Date / Time No Known Drug Allergies Allergy Verified 03/08/18 18:21 Travel Screening - Travel/Exposure Within Last 30 Days Have you traveled within the last 30 days?: No - Travel Symptoms Symptom Screening: None Review of Systems Constitutional: Denies: Chills, Fever, Malaise, Night sweats Eyes: Denies: Eye discharge, Eye pain ENT: Denies: Congestion, Ear pain, Epistaxis Respiratory: Denies: Cough, Dyspnea Cardiovascular: Denies: Chest pain, Dyspnea on exertion Endocrine: Denies: Fatigue, Heat or cold intolerance Gastrointestinal: Reports: Other (Rectal pain). Denies: Abdominal pain, Nausea , Vomiting Genitourinary: Denies: Incontinence, Retention Musculoskeletal: Denies: Arthralgia, Back pain, Gout, Joint swelling Skin: Denies: Bruising, Change in color Neurological: Denies: Abnormal gait, Confusion, Headache, Seizure Psychiatric: Denies: Anxiety Hematological/Lymphatic: Denies: Anemia, Blood Clots Past Medical History - SOCIAL HISTORY Smoking Status: Never smoker - RESPIRATORY Hx Respiratory Disorders: Yes Comment:: Spontaneous pneumothorax - CARDIOVASCULAR Hx Cardio Disorders: Yes Comment:: Murmur - NEURO Hx Neuro Disorders: Yes Hx Headaches: Yes - GI Hx GI Disorders: Yes Hx Irritable Bowel: Yes - Hx Genitourinary Disorders: Yes Comment:: Interstitial Cystitis- unknown - ENDOCRINE Hx Endocrine Disorders: Yes Hx Thyroid Disease: Yes (Complete thyroidectomy) - MUSCULOSKELETAL Hx Musculoskeletal Disorders: Yes Comment:: osteopenia - PSYCH Hx Psych Problems: Yes Hx Anxiety: Yes - HEMATOLOGY/ONCOLOGY Hx Hematology/Oncology Disorders: Yes Hx Cancer: Yes (hx Hodgkins Lymphoma stage 4 age 16) Hx Chemotherapy: Yes (1998) Hx Radiation Therapy: Yes Family Medical History Any Significant Family History?: Yes Hx Cancer: Father, Grandparents Hx Heart Disease: Father, Grandparents Physical Exam - General General Appearance: Alert, Oriented x3, Cooperative, Mild distress Limitations: No limitations - Head Head exam: Atraumatic, Normocephalic, Normal inspection Head exam detail: negative: Abrasion, Contusion, Toledo's sign, General tenderness, Hematoma, Laceration - Eye Eye exam: Normal appearance. negative: Conjunctival injection, Periorbital swelling, Periorbital tenderness, Scleral icterus - ENT Ear exam: negative: Auricular hematoma, Auricular trauma Nasal Exam: negative: Active bleeding, Discharge, Dried blood, Foreign body Mouth exam: negative: Drooling, Laceration, Muffled voice, Tongue elevation - Neck Neck exam: Normal inspection. negative: Meningismus, Tenderness - Respiratory Respiratory exam: Normal lung sounds bilaterally. negative: Rales, Respiratory distress, Rhonchi, Stridor - Cardiovascular Cardiovascular Exam: Regular rate, Normal rhythm, Normal heart sounds - GI/Abdominal GI/Abdominal exam: Soft. negative: Rebound, Rigid, Tenderness - Rectal Rectal exam: Hemorrhoids (No-thrombosed hemorrhoid is present on examination.), Tenderness - exam: Deferred - Extremities Extremities exam: Normal inspection - Back Back exam: Reports: Normal inspection. Denies: CVA tenderness (R), CVA tenderness (L) - Neurological Neurological exam: Alert, Normal gait, Oriented X3 - Psychiatric Psychiatric exam: Normal affect, Normal mood - Skin Skin exam: Normal color. negative: Abrasion Type of lesion: negative: abrasion Course Vital Signs 05/22/18 19:17 Temperature 98.1 F Pulse Rate [ 122 H Left] Respiratory 16 Rate Blood Pressure 115/99 [Left Arm] Pulse Ox 97 - Reevaluation(s) Reevaluation #1: 05/22/18 19:37 Patient was seen and examined, findings are c/w external, non-thrombosed hemorrhoid. Counseled the patient re: symptomatic treatment with anusol cream, miralax, and sitz baths. Patient verbalizes understanding of all instructions, appears stable for discharge at this time. Disposition Disposition: Discharge Clinical Impression: Hemorrhoids Qualifiers: Hemorrhoid type: unspecified Qualified Code(s): K64.9 - Unspecified hemorrhoids Disposition: Home, Self-Care Condition: (2) Stable Instructions: Hemorrhoids (ED) Additional Instructions: Return to ED if your symptoms worsen or if you have any concerns. Anusol, Miralax as directed. Follow-up with your family doctor in 3-5 days as directed. Prescriptions: Hydrocortisone [Anusol-Hc] 1 apply RC QID #1 tube Polyethylene Glycol 3350 [Miralax] 1 packet PO DAILY #15 packet Forms: Patient Portal Access Time of Disposition: 19:27 Quality - Quality Measures Quality Measures: N/A - Blood Pressure Screening Does Patient Have Any of the Following: No Blood Pressure Classification: Hypertensive Reading Systolic Measurement: 115 Diastolic Measurement: 99 Screening for High Blood Pressure: < First Hypertensive BP, F/U Documented > [ G8950] First Hypertensive Follow-up Interventions: Referral to alternative/primary care provider.
== END 2018-05-22 19:39 | disposition home or self-care (01) ==
LOC: ER 19:08
DX: K64.8 Other hemorrhoids (principal)
CPT/HCPCS: 99282; 99283

== ENCOUNTER 2018-09-18 13:59 | Emergency (ER) | payer BC ==
[2018-09-18] MEDS ORDERED: KETOROLAC 60 MG/2 ML VIAL IM STA (14:19)
--- NOTE | 2018-09-18 14:20 | Emergency Department Record ---
History of Present Illness - General Chief Complaint: Headache Migraine Stated Complaint: migraine Time Seen by Provider: 09/18/18 14:11 Source: Patient, RN notes reviewed Mode of Arrival: Ambulatory - History of Present Illness Initial Comments: patient states LOPEZ at 11:00am and she took a maxault and it is not helping. No vomiting and no nausea and she has migraines about 5 per month. No lifting, Patient does computer work as a admintrative assistance. MD Complaint: "Migraine" Onset/Timin -: Hour(s) Onset Description: Sudden Location: Frontal, Neck, Temporal Quality: Similar to previous headaches Consistency: Constant Improves With: Nothing Worsens With: None Treatments Prior to Arrival: Migraine medication - Related Data Previous Rx's Medication Instructions Recorded Polyethylene Glycol 3350 [Miralax] 1 packet PO DAILY #15 packet 05/22/18 Allergies Allergy/AdvReac Type Severity Reaction Status Date / Time No Known Drug Allergies Allergy Verified 03/08/18 18:21 Travel Screening - Travel/Exposure Within Last 30 Days Have you traveled within the last 30 days?: No Review of Systems Reviewed: No additional complaints except as noted below Constitutional: Reports: As per HPI. Denies: Chills, Fever, Malaise, Night sweats, Weakness, Weight change Eyes: Reports: As per HPI. Denies: Eye discharge, Eye pain, Photophobia, Vision change ENT: Reports: As per HPI. Denies: Congestion, Dental pain, Ear pain, Epistaxis, Hearing loss, Throat pain Respiratory: Reports: As per HPI. Denies: Cough, Dyspnea, Hemoptysis, Stridor, Wheezes Cardiovascular: Reports: As per HPI. Denies: Arrhythmia, Chest pain, Dyspnea on exertion, Edema, Murmurs, Orthopnea, Palpitations, Paroxysmal nocturnal dyspnea, Rheumatic Fever, Syncope Endocrine: Reports: As per HPI. Denies: Fatigue, Heat or cold intolerance, Polydipsia, Polyuria Gastrointestinal: Reports: As per HPI. Denies: Abdominal pain, Constipation, Diarrhea, Hematemesis, Hematochezia, Melena, Nausea, Vomiting Genitourinary: Reports: As per HPI. Denies: Abnormal menses, Discharge, Dyspareunia, Dysuria, Frequency, Hematuria, Incontinence, Retention, Urgency Musculoskeletal: Reports: As per HPI. Denies: Arthralgia, Back pain, Gout, Joint swelling, Myalgia, Neck pain Skin: Reports: As per HPI. Denies: Bruising, Change in color, Change in hair/nails, Lesions, Pruritus, Rash Neurological: Reports: As per HPI, Headache. Denies: Abnormal gait, Confusion, Numbness, Paresthesias, Seizure, Tingling, Tremors, Vertigo, Weakness Psychiatric: Reports: As per HPI. Denies: Anxiety, Auditory hallucinations, Depression, Homicidal thoughts, Suicidal thoughts, Visual hallucinations Hematological/Lymphatic: Reports: As per HPI. Denies: Anemia, Blood Clots, Easy bleeding, Easy bruising, Swollen glands Past Medical History - SOCIAL HISTORY Smoking Status: Never smoker - RESPIRATORY Hx Respiratory Disorders: Yes Comment:: Spontaneous pneumothorax - CARDIOVASCULAR Hx Cardio Disorders: Yes Comment:: Murmur - NEURO Hx Neuro Disorders: Yes Hx Headaches: Yes - GI Hx GI Disorders: Yes Hx Irritable Bowel: Yes - Hx Genitourinary Disorders: Yes Comment:: Interstitial Cystitis- unknown - ENDOCRINE Hx Endocrine Disorders: Yes Hx Thyroid Disease: Yes (Complete thyroidectomy) - MUSCULOSKELETAL Hx Musculoskeletal Disorders: Yes Comment:: osteopenia - PSYCH Hx Psych Problems: Yes Hx Anxiety: Yes - HEMATOLOGY/ONCOLOGY Hx Hematology/Oncology Disorders: Yes Hx Cancer: Yes (hx Hodgkins Lymphoma stage 4 age 16) Hx Chemotherapy: Yes (1998) Hx Radiation Therapy: Yes Family Medical History Any Significant Family History?: Yes Hx Cancer: Father, Grandparents Hx Heart Disease: Father, Grandparents Physical Exam - General General Appearance: Alert, Oriented x3, Cooperative, No acute distress - Head Head exam: Normal inspection - Eye Eye exam: Normal appearance, PERRL Pupils: Normal accommodation - ENT ENT exam: Normal exam, Mucous membranes moist, Normal external ear exam, Normal orophraynx, TM's normal bilaterally Ear exam: Normal external inspection. negative: External canal tenderness Nasal Exam: Normal inspection. negative: Discharge, Sinus tenderness Mouth exam: Normal external inspection, Tongue normal Teeth exam: Normal inspection. negative: Dental caries Throat exam: Normal inspection. negative: Tonsillar erythema, Tonsillar exudate - Neck Neck exam: Normal inspection, Full ROM. negative: Tenderness - Respiratory Respiratory exam: Normal lung sounds bilaterally. negative: Respiratory distress - Cardiovascular Cardiovascular Exam: Regular rate, Normal rhythm, Normal heart sounds - GI/Abdominal GI/Abdominal exam: Soft, Normal bowel sounds. negative: Tenderness - Rectal Rectal exam: Deferred - exam: Deferred - Extremities Extremities exam: Normal inspection, Full ROM, Normal capillary refill. negative: Tenderness - Back Back exam: Reports: Normal inspection, Full ROM. Denies: Muscle spasm, Rash noted, Tenderness - Neurological Neurological exam: Alert, Normal gait, Oriented X3, Reflexes normal - Psychiatric Psychiatric exam: Normal affect, Normal mood - Skin Skin exam: Dry, Intact, Normal color, Warm Course Vital Signs 09/18/18 14:08 Temperature 97.7 F Pulse Rate [ 87 Pulse Ox Probe] Respiratory 16 Rate Blood Pressure 137/97 [Left Arm] Pulse Ox 100 - Reevaluation(s) Reevaluation #1: 09/18/18 15:12 feeling bettter Disposition Clinical Impression: Migraine Qualifiers: Migraine type: unspecified Status migrainosus presence: without status migraino mayte Intractability: not intractable Qualified Code(s): G43.909 - Migraine, unspecified, not intractable, without status migrainosus Disposition: Home, Self-Care Condition: (1) Good Instructions: Migraine Headache (ED) Additional Instructions: motrin otc 2 pills three times a day tylenol three times a day Forms: Patient Portal Access Time of Disposition: 15:13 Quality - Quality Measures Quality Measures: N/A, Headache (All Ages) - Headache: Neuroimaging Quality Measure: Measure #419: Overuse of Neuroimaging ICD10 Codes Entered: Yes Neurological Exam: Patient had a normal neurological exam. [G9535] Headache: Use of Neuroimaging: < CTA, CT, MRA or MRI was NOT ordered > [G9534] - Blood Pressure Screening Does Patient Have Any of the Following: No Blood Pressure Classification: Hypertensive Reading Systolic Measurement: 137 Diastolic Measurement: 97 Screening for High Blood Pressure: < Pre-Hypertensive BP, F/U Documented > [G8950] Pre-Hypertensive Follow-up Interventions: Referral to alternative/primary care provider.
== END 2018-09-18 15:19 | disposition home or self-care (01) ==
LOC: ER 13:59
DX: G43.909 Migraine, unspecified, not intractable, without status migrainosus (principal); M54.2 Cervicalgia
CPT/HCPCS: 96372; 99283; J1885

== ENCOUNTER 2018-12-19 15:31 | Emergency (ER) | payer BC ==
[2018-12-19] MEDS ORDERED: 0.9 % SODIUM CHLORIDE 1,000 ML BAG IV ONE (16:05)
[2018-12-19] MEDS ORDERED: METOCLOPRAMIDE HCL 10 MG/2 ML VIAL IVP ONE (16:05)
[2018-12-19] MEDS ORDERED: DIPHENHYDRAMINE HCL 50 MG/ML VIAL IVP ONE (16:05)
[2018-12-19] MEDS ORDERED: KETOROLAC 30 MG/ML VIAL IVP ONE (16:05)
--- NOTE | 2018-12-19 16:10 | Emergency Department Record ---
History of Present Illness - General Chief Complaint: Headache Migraine Stated Complaint: headache,pain shouoting down neck Time Seen by Provider: 12/19/18 15:34 Source: Patient Mode of Arrival: Ambulatory Limitations: No limitations - History of Present Illness Initial Comments: The patient is here due to a headache off and on for 3 days. The pain started on Sat and was mild. It felt like a migraine LOPEZ and she did take her Maxalt for it. The pain was sharp and stabbing and on the L side of the head. After the Maxalt she felt better but then it did come back in a few hours. The pain has been intermittent since and waxing and waning. She also has had L sided neck pain with the head pain. The neck pain feels like a sharp shooting pain at the base o f the skull that radiates to the L lower neck. The patient does have a long hx of chronic LOPEZ's but has not had pain similar to this. She also has had a dry cough and sinus pressure for 2 days. There has been no reported Cp, visual changes, fever, arm or leg numbness or weakness, trouble with talking or balance issues. MD Complaint: Headache Onset/Timin -: Days(s) Onset Description: Gradual Location: Left, Neck, Occipital Consistency: Constant Improves With: Nothing Associated Symptoms: Photophobia, Other Treatments Prior to Arrival: Acetaminophen Treatment Prior to Arrival Comment:: excedrin - Related Data Home Medications Medication Instructions Recorded Confirmed Last Taken Nitrofurantoin Milam [Macrobid] 100 mg PO DAILY 12/19/18 12/19/18 12/17/18 Previous Rx's Medication Instructions Recorded Doxycycline Monohydrate [Mondoxyne 100 mg PO BID 7 Days #14 capsule 12/19/18 ] Allergies Allergy/AdvReac Type Severity Reaction Status Date / Time No Known Drug Allergies Allergy Verified 03/08/18 18:21 Travel Screening - Travel/Exposure Within Last 30 Days Have you traveled within the last 30 days?: No - Travel/Exposure Within Last Year Have you traveled outside the [place] in the last year?: No - Additonal Travel Details Have you been exposed to anyone with a communicable illness?: No Review of Systems Constitutional: Reports: Malaise. Denies: Chills, Fever Eyes: Denies: Eye discharge ENT: Reports: Congestion Respiratory: Reports: Cough. Denies: Dyspnea Cardiovascular: Denies: Arrhythmia Endocrine: Denies: Fatigue Gastrointestinal: Reports: Nausea Genitourinary: Denies: Dysuria Musculoskeletal: Denies: Arthralgia Skin: Denies: Bruising Past Medical History - SOCIAL HISTORY Smoking Status: Never smoker Alcohol Use: None Drug Use: None - RESPIRATORY Hx Respiratory Disorders: Yes Comment:: Spontaneous pneumothorax - CARDIOVASCULAR Hx Cardio Disorders: Yes Comment:: Murmur - NEURO Hx Neuro Disorders: Yes Hx Headaches: Yes - GI Hx GI Disorders: Yes Hx Irritable Bowel: Yes - Hx Genitourinary Disorders: Yes Comment:: Interstitial Cystitis- unknown - ENDOCRINE Hx Endocrine Disorders: Yes Hx Thyroid Disease: Yes (Complete thyroidectomy) - MUSCULOSKELETAL Hx Musculoskeletal Disorders: Yes Comment:: osteopenia - PSYCH Hx Psych Problems: Yes Hx Anxiety: Yes - HEMATOLOGY/ONCOLOGY Hx Hematology/Oncology Disorders: Yes Hx Cancer: Yes (hx Hodgkins Lymphoma stage 4 age 16) Hx Chemotherapy: Yes (1998) Hx Radiation Therapy: Yes Family Medical History Any Significant Family History?: No Hx Cancer: Father, Grandparents Hx Heart Disease: Father, Grandparents Physical Exam - General General Appearance: Alert, Oriented x3, Cooperative, Mild distress - Head Head exam: Atraumatic, Normocephalic, Normal inspection - Eye Eye exam: Normal appearance, PERRL, EOMI. negative: Conjunctival injection, Nystagmus - ENT ENT exam: negative: TM's normal bilaterally (There is bilateral cerumen causing difficulty visualizing the TM's.) Throat exam: Normal inspection. negative: Tonsillar erythema, Tonsillar exudate - Neck Neck exam: Normal inspection, Full ROM, Tenderness (Palpation of the L posterior superior cervical muscles exactly reproduces the neck pain.). negative: Lymphadenopathy, Meningismus (The neck is very supple.) - Respiratory Respiratory exam: Normal lung sounds bilaterally. negative: Respiratory distress - Cardiovascular Cardiovascular Exam: Regular rate, Normal rhythm, Normal heart sounds - GI/Abdominal GI/Abdominal exam: Soft, Normal bowel sounds. negative: Tenderness - Extremities Extremities exam: Normal inspection, Full ROM, Normal capillary refill. negative: Tenderness - Neurological Neurological exam: Alert, Normal gait, Oriented X3, Other (Neg Drift and Rhomberg.). negative: Abnormal gait, Altered, Motor sensory deficit - Psychiatric Psychiatric exam: negative: Anxious Course Vital Signs 12/19/18 15:34 Temperature 97.4 F L Pulse Rate 69 Respiratory 16 Rate Blood Pressure 140/87 Pulse Ox 100 - Reevaluation(s) Reevaluation #1: The patient is doing a lot better at this time. She states her LOPEZ is 85% improved and she is up walking with no difficulty. I did discuss the normal lab tests and Head CT that did not show any bleeding or mass. Due to the new onset LOPEZ I did recommend an LP to R/O SAH. I did explain that due to the LOPEZ being [address] not 100% Sensitive to R/O a SAH. I did explain by NOT doing the LP the patient runs the risks of going home with an undiagnosed SAH which can lead to worsening pain, a stroke, being disabled and even dying. The patient fully understands and accepts the risks and does not want the LP. She presently has proper decision making capacity. She is to take her home pain medicines and we will add the Doxycycline due to the mild sinusitis. She is to see her PCP later this week for recheck and is to return to the ER for any worsening symptoms. 12/19/18 17:45 Medical Decision Making - Data Complexity MDM Data: Labs Ordered and/or Reviewed, X-Ray Ordered and/or Reviewed - Lab Data Result diagrams: 12/19/18 16:20 12/19/18 16:20 - Radiology Data Radiology results: Report reviewed (Head CT: Neg for any acute changes. Mild L max sinusitis.) Disposition Disposition: Discharge Clinical Impression: Sinusitis Qualifiers: Sinusitis location: maxillary Chronicity: acute Recurrence: non-recurrent Qualified Code(s): J01.00 - Acute maxillary sinusitis, unspecified Headache Qualifiers: Headache type: unspecified Headache chronicity pattern: acute headache Disposition: Home, Self-Care Condition: (2) Stable Instructions: Acute Headache (ED) Additional Instructions: Please continue the Doxycycline and use the Deloit if needed. Please see your doctor later this week for recheck. Return to the ER for any worsening symptoms, any return of the head pain, fever, or vomiting. Prescriptions: Doxycycline Monohydrate [Mondoxyne Nl] 100 mg PO BID 7 Days #14 capsule Forms: Patient Portal Access Time of Disposition: 17:52 Quality - Quality Measures Quality Measures: N/A - Blood Pressure Screening View Details: Yes Does Patient Have Any of the Following: No Blood Pressure Classification: Pre-Hypertensive BP Reading Systolic Measurement: 140 Diastolic Measurement: 87 Screening for High Blood Pressure: < Pre-Hypertensive BP, F/U Documented > [G8950] Pre-Hypertensive Follow-up Interventions: Referral to alternative/primary care provider.
[2018-12-19 16:52] LABS: ABSOLUTE NEUTROPHIL COUNT 2.84; BASO % 0.8 % (0-6); EOS % 7.5 % (0-6); GRAN % 47.2 % (47-80); HEMATOCRIT 39.1 % (35.0-47.0); HEMOGLOBIN 12.5 gm/dl (11.6-16.0); LYMPH % 37.7 % (16-45); MEAN CORPUSCULAR HEMOGLOBIN 29.4 pg (27-33); MEAN PLATELET VOLUME 9.3 fl (7.4-10.4); MONO % 6.8 % (0-9); PLATELET COUNT 283 K/uL (130-400); RED BLOOD COUNT 4.25 M/uL (3.80-5.40); RED CELL DISTRIBUTION WIDTH 12.4 % (11.5-14.5)
[2018-12-19] MEDS ORDERED: ACETAMINOPHEN 1,000 MG/100 ML BTL IVPB ONE (17:16)
[2018-12-19 17:19] LABS: BILIRUBIN,TOTAL < 0.20 mg/dL (0.2-1.0); BLOOD UREA NITROGEN 12 mg/dL (6-20); CREATININE 0.7 mg/dL (0.5-0.9); EST GLOMERULAR FILTRATION RATE > 60 mL/min
--- NOTE | 2018-12-19 17:19 | CT SCAN REPORT ---
EXAMINATION: HEAD WO CONTRAST EXAM DATE: 12/19/2018 5:06 PM TECHNIQUE: Noncontrast axial images were obtained to the brain. INDICATION: L sided headache. Hodgkin's lymphoma. COMPARISON: 12/28/2016 ENCOUNTER: Not applicable HAND DOMINANCE: Unknown FINDINGS: The brain parenchyma is unremarkable for age. No loss of griffiths-white matter differentiation or sulcal effacement to indicate acute infarction. No evidence of intracranial mass. Mild cerebellar volume loss The ventricles, sulci, and subarachnoid spaces are unremarkable for age. The basal cisterns are patent and there is no midline shift or herniation. No intra-axial or extra-axial fluid collection. No evidence of intracranial hemorrhage. Small air-fluid level in the left maxillary sinus. Dense calcification in the left eyelid The paranas al sinuses, mastoid air cells, and orbits are otherwise unremarkable. The calvarium is intact. IMPRESSION: 1. No CT evidence of intracranial hemorrhage or acute intracranial abnormality. 2. Stable mild cerebellar volume loss, greater than expected for age. This is most commonly associat ed with antiseizure medications or alcohol. 3. No noncontrast CT evidence of lymphoma or metastasis 4. Small air-fluid level in the left maxillary sinus. Correlate for acute sinusitis. Dictated by: LEXIE JONES MD on 12/19/2018 5:10 PM. .
[2018-12-19 17:20] LABS: TOTAL PROTEIN 7.6 g/dL (6.6-8.7)
[2018-12-19 17:22] LABS: GLUCOSE,RANDOM 98 mg/dL (74-109)
[2018-12-19 17:24] LABS: ALT/SGPT 8 U/L (<33)
[2018-12-19 17:25] LABS: ALB/GLOB RATIO 1.6 (1.1-1.8); ALBUMIN 4.7 g/dL (4.0-5.0); ALKALINE PHOSPHATASE 64 U/L (35-104); AST/SGOT 16 U/L (10.0-35.0); C-REACTIVE PROTEIN 0.16 mg/dL (<0.5)
[2018-12-19] MEDS ORDERED: DOXYCYCLINE HYCLATE 100 MG CAPSULE PO ONE (17:43)
[2018-12-19] MEDS ORDERED: HYDROCODONE/APAP 5/325MG TABLET PO ONE (17:50)
== END 2018-12-19 18:05 | disposition home or self-care (01) ==
LOC: ER 15:31
DX: R51 Headache (principal); J01.00 Acute maxillary sinusitis, unspecified; M54.2 Cervicalgia; R05 Cough; H53.149 Visual discomfort, unspecified; Z85.72 Personal history of non-Hodgkin lymphomas
CPT/HCPCS: 70450; 80053; 85025; 86140; 96365; 96375; 99284; J1200; J1885; J2765; J7030